=== PATIENT | female | born 1995 | race Hispanic/Latino ===

== ENCOUNTER 2021-01-29 07:02 | Inpatient (IN) | payer OTHER ==
[~2021-01-29] VITALS: Ht 160 cm; Wt 56.3 kg
[2021-01-29 07:44] LABS: BASO # 0.1 10^3/uL (0.0-0.2); BASO % 0.4 % (0.0-1.0); EOS # 0.5 10^3/uL (0.0-0.5); EOS % 2.8 % (0.0-3.0); HEMATOCRIT 39.1 % (36.0-47.0); HEMOGLOBIN 12.8 g/dl (12.0-15.5); LYMPH # 2.3 10^3/uL (1.5-5.0); LYMPH % 13.2 % (24.0-44.0); MEAN CORPUSCULAR HEMOGLOBIN 31.8 pg (27.0-33.0); MEAN CORPUSCULAR HGB CONC 32.7 g/dl (32.0-36.5); MEAN CORPUSCULAR VOLUME 97.3 fl (80.0-96.0); MONO # 1.3 10^3/uL (0.0-0.8); MONO % 7.3 % (2.0-8.0); NEUTROPHILS # 13.3 10^3/uL (1.5-8.5); NEUTROPHILS % 75.8 % (36.0-66.0); PLATELET COUNT, AUTOMATED 317 10^3/uL (150-450); RED BLOOD COUNT 4.02 10^6/uL (4.00-5.40); WHITE BLOOD COUNT 17.6 10^3/uL (4.0-10.0)
[2021-01-29 08:09] LABS: ALBUMIN 3.6 GM/DL (3.2-5.2); BILIRUBIN,DIRECT 0.2 MG/DL (0.0-0.2); BILIRUBIN,TOTAL 0.8 MG/DL (0.2-1.0); TOTAL PROTEIN 7.1 GM/DL (6.4-8.2)
[2021-01-29] MEDS ORDERED: PIPERACILLIN/TAZOBACTAM SOD 3.375 GM in D5W MINI-BAG PLUS 50 ML IV ONE (08:55)
[2021-01-29] MEDS ORDERED: NS 1,000 ML IV ONE (09:10)
[2021-01-29] MEDS ORDERED: KETOROLAC 30 MG/ML 1ML VIAL IV ONE (09:25)
[2021-01-29 10:02] LABS: RSV AMPLIFICATION NEGATIVE (NEGATIVE)
[2021-01-29] MEDS ORDERED: BAMLANIVIMAB 700 MG, ETESEVIMAB 1,400 MG in NS 250 ML IV ONE (11:40)
[2021-01-29] MEDS ORDERED: HOME MED LIST COMPLETE! XX SCH (11:45)
[2021-01-29] MEDS ORDERED: PIPERACILLIN/TAZOBACTAM SOD 4.5 GM in D5W MINI-BAG PLUS 50 ML IV ONE (11:55)
[2021-01-29] MEDS: ENOXAPARIN 40MG/0.4ML SYRINGE (J1650 PER 10MG) SC SCH (12:14)
[2021-01-29] MEDS: ACETAMINOPHEN TAB 650MG DOSE (2X325MG) PO PRN (12:14)
[2021-01-29] MEDS ORDERED: ONDANSETRON 4 MG ORAL DISINTEGRATING TAB PO PRN (13:10)
[2021-01-29 13:19] VITALS: BP 116/71
[2021-01-29] MEDS: MORPHINE 4 MG/ML 1ML VIAL/SYRINGE (J2270) IV PRN ×2 (13:40→21:19)
[2021-01-29] MEDS: NS 1,000 ML IV SCH ×2 (13:40→23:31)
[2021-01-29] MEDS: ASCORBIC ACID 500 MG TAB PO SCH (15:05)
[2021-01-29] MEDS: ZINC SULFATE 220 MG CAP PO SCH (15:05)
[2021-01-29] MEDS: PIPERACILLIN/TAZOBACTAM SOD 3.375 GM in D5W MINI-BAG PLUS 50 ML IV SCH ×2 (15:06→21:16)
[2021-01-29] MEDS ORDERED: SENNA 8.6 MG TAB (SENOKOT) PO PRN (15:55)
[2021-01-29] MEDS: ONDANSETRON 4MG/2ML VIAL IV PRN ×2 (16:26→21:17)
[2021-01-29 20:00] VITALS: BP 133/76
[2021-01-30] MEDS: PIPERACILLIN/TAZOBACTAM SOD 3.375 GM in D5W MINI-BAG PLUS 50 ML IV SCH ×2 (03:54→09:52)
[2021-01-30 04:00] VITALS: BP 101/59
[2021-01-30] MEDS ORDERED: NS 1,000 ML IV SCH (06:00)
[2021-01-30] MEDS ORDERED: diphenhydrAMINE 50MG/ML VIAL (J1200) IV PRN (06:00)
[2021-01-30] MEDS ORDERED: ALBUTEROL 90 MCG/ACT 8GM HFA INHALER INH PRN (06:00)
[2021-01-30] MEDS ORDERED: methylPREDNISolone 125MG 2ML VIAL IV PRN (06:00)
[2021-01-30] MEDS ORDERED: EPINEPHrine INJ 1 MG/ML 1ML AMP IM PRN (06:00)
[2021-01-30] MEDS ORDERED: ALBUTEROL SULFATE 2.5 MG/0.5 ML INH NEB SOLN INH PRN (06:00)
[2021-01-30 07:06] LABS: HEMATOCRIT 35.4 % (36.0-47.0); HEMOGLOBIN 11.6 g/dl (12.0-15.5); MEAN CORPUSCULAR HEMOGLOBIN 31.9 pg (27.0-33.0); MEAN CORPUSCULAR HGB CONC 32.8 g/dl (32.0-36.5); MEAN CORPUSCULAR VOLUME 97.3 fl (80.0-96.0); PLATELET COUNT, AUTOMATED 261 10^3/uL (150-450); RED BLOOD COUNT 3.64 10^6/uL (4.00-5.40); WHITE BLOOD COUNT 10.7 10^3/uL (4.0-10.0)
[2021-01-30 07:44] LABS: ALBUMIN 2.9 GM/DL (3.2-5.2); ALT/SGPT 13 U/L (12-78); BILIRUBIN,TOTAL 0.7 MG/DL (0.2-1.0); BLOOD UREA NITROGEN 7 MG/DL (7-18); CALCIUM LEVEL 8.2 MG/DL (8.5-10.1); CARBON DIOXIDE LEVEL 26 MEQ/L (21-32); CHLORIDE LEVEL 108 MEQ/L (98-107); CREATININE FOR GFR 0.74 MG/DL (0.55-1.30); GLOMERULAR FILTRATION RATE > 60.0 (>60); GLUCOSE, FASTING 83 MG/DL (70-100); POTASSIUM SERUM 3.7 MEQ/L (3.5-5.1); SODIUM LEVEL 139 MEQ/L (136-145); TOTAL PROTEIN 6.3 GM/DL (6.4-8.2)
[2021-01-30 08:00] VITALS: O2SAT 100
[2021-01-30] MEDS: ENOXAPARIN 40MG/0.4ML SYRINGE (J1650 PER 10MG) SC SCH (09:00)
[2021-01-30] MEDS ORDERED: INFLUENZA QUADRIVALENT PF VACCINE 0.5ML SYRINGE IM ONE (09:00)
[2021-01-30] MEDS: NS 1,000 ML IV SCH (09:49)
[2021-01-30] MEDS: ZINC SULFATE 220 MG CAP PO SCH (09:50)
[2021-01-30] MEDS: ASCORBIC ACID 500 MG TAB PO SCH (09:50)
[2021-01-30] MEDS: ACETAMINOPHEN TAB 650MG DOSE (2X325MG) PO PRN (09:51)
[2021-01-30] MEDS ORDERED: VENTAER INH (10:23)
[2021-01-30] MEDS ORDERED: ASCO50TA PO (10:23)
[2021-01-30] MEDS ORDERED: ACET1TAB55 PO (10:23)
[2021-01-30] MEDS ORDERED: ZINC220CA PO (10:23)
[2021-01-30] MEDS ORDERED: CVS1CAP2 PO (10:30)
[2021-01-30] MEDS ORDERED: AUGM875T28 PO (10:30)
[2021-01-30 12:00] VITALS: O2SAT 100
[2021-01-30] MEDS ORDERED: CASIRIVIMAB/IMDEVIMAB 1,200 MG in NS 250 ML IV ONE (12:00)
[2021-01-30] MEDS ORDERED: CASIRIVIMAB (REGN10933) 600 MG, IMDEVIMAB (REGN10987) 600 MG in NS 250 ML IV ONE (12:00)
== END 2021-01-30 14:55 | disposition home or self-care (01) | DRG 177 ==
LOC: M ED 07:02 → M ED INP 11:34 → ENRESERV 12:18 → M 4MAIN 13:19
PROVIDERS: ADMIT Internal Medicine; ATTEND Family Medicine
PROC: XW033H6 Introduction of Other New Technology Monoclonal Antibody into Peripheral Vein, Percutaneous Approach, New Technology Group 6 (ICD-10-PCS; principal; 2021-01-29)
DX: U07.1 COVID-19 (principal); J12.82 Pneumonia due to coronavirus disease 2019; N12 Tubulo-interstitial nephritis, not specified as acute or chronic; N39.0 Urinary tract infection, site not specified; K37 Unspecified appendicitis; K59.00 Constipation, unspecified; B96.20 Unspecified Escherichia coli [E. coli] as the cause of diseases classified elsewhere

== ENCOUNTER 2021-02-04 08:36 | Outpatient (CLI) | payer OTHER ==
[~2021-02-04] VITALS: Ht 157.5 cm; Wt 54.4 kg
[~2021-02-04 08:36] MED LIST: ACET1TAB55 PO; ALBUTEROL 90 MCG/ACT 8GM HFA INHALER INH PRN; ALBUTEROL SULFATE 2.5 MG/0.5 ML INH NEB SOLN INH PRN; ASCO50TA PO; AUGM875T28 PO; BAMLANIVIMAB 700 MG, ETESEVIMAB 1,400 MG in NS 250 ML IV ONE; CVS1CAP2 PO; EPINEPHrine INJ 1 MG/ML 1ML AMP IM PRN; NS 1,000 ML IV SCH; VENTAER INH; ZINC220CA PO; diphenhydrAMINE 50MG/ML VIAL (J1200) IV PRN; methylPREDNISolone 125MG 2ML VIAL IV PRN
[2021-02-04] MEDS ORDERED: ALBUTEROL SULFATE 2.5 MG/0.5 ML INH NEB SOLN INH PRN (08:55)
[2021-02-04] MEDS ORDERED: ALBUTEROL 90 MCG/ACT 8GM HFA INHALER INH PRN (08:55)
[2021-02-04] MEDS ORDERED: NS 1,000 ML IV SCH (09:00)
[2021-02-04] MEDS ORDERED: EPINEPHrine INJ 1 MG/ML 1ML AMP IM PRN (09:00)
[2021-02-04] MEDS ORDERED: diphenhydrAMINE 50MG/ML VIAL (J1200) IV PRN (09:00)
[2021-02-04] MEDS ORDERED: CASIRIVIMAB/IMDEVIMAB 1,200 MG in NS 250 ML IV ONE (09:00)
[2021-02-04] MEDS ORDERED: methylPREDNISolone 125MG 2ML VIAL IV PRN (09:00)
[2021-02-04 09:01] VITALS: BP 108/54
[2021-02-04 09:31] VITALS: BP 106/54
[2021-02-04 10:01] VITALS: BP 98/53
[2021-02-04 11:01] VITALS: BP 109/53
== END 2021-02-04 11:01 | disposition home or self-care (01) ==
LOC: M OPCLI4PR 08:36
PROVIDERS: ATTEND Internal Medicine
DX: U07.1 COVID-19 (principal)